=== PATIENT | male | born 1940 | race Caucasian/White ===

== ENCOUNTER 2023-09-12 23:59 | Outpatient (BNV) | payer MEDICARE, SELFPAY | END 2023-09-13 23:59 | PROVIDERS: Visit Provider Internal Medicine | DX: I48.91 Unspecified atrial fibrillation (principal); I10 Essential (primary) hypertension; C82.90 Follicular lymphoma, unspecified, unspecified site | CPT/HCPCS: 99223 ==

== ENCOUNTER 2023-09-30 10:58 | Outpatient (REF) | payer MEDICARE, SELFPAY | END 2023-09-30 10:59 | disposition home or self-care (01) | LOC: HO.MMNH2L 10:58 | PROVIDERS: Visit Provider Family Medicine | DX: Z13.89 Encounter for screening for other disorder (principal) ==